=== PATIENT | male | born 1930 | race Caucasian/White ===

== ENCOUNTER 2017-11-20 08:45 | Emergency (ER) | payer MEDICARE, OTHER ==
[~2017-11-20] VITALS: Ht 172.7 cm; Wt 72.6 kg
[~2017-11-20 08:45] MED LIST: ASPIRIN324 MG PO; LISINOPRIL20 MG PO; LOPRESSOR25 MG PO; PLAVIX75 M1 PO; PRAVACHOL40 MG PO; PRILOSEC20 MG PO; PROSCAR5 MG PO; Synthroid,Levo25 MCG PO; TERAZOSIN HCL5 M1 PO
[2017-11-20 08:50] VITALS: BP 154/71
[2017-11-20] MEDS ORDERED: NORCO 5-325 TA1 EACH PO (09:10)
[2017-11-20] MEDS ORDERED: PREDNISONE10 MG PO (09:10)
== END 2017-11-20 09:54 | disposition home or self-care (01) ==
LOC: ED 08:45
DX: M10.071 Idiopathic gout, right ankle and foot (principal); R03.0 Elevated blood-pressure reading, without diagnosis of hypertension; Z88.6 Allergy status to analgesic agent; Z79.82 Long term (current) use of aspirin; Z79.899 Other long term (current) drug therapy

== ENCOUNTER → 2017-11-26 | Outpatient (CLI) | payer MEDICARE, OTHER ==
[~2017-11-26] MED LIST changes: +NORCO 5-325 TA1 EACH PO; +PREDNISONE10 MG PO
== END | disposition home or self-care (01) ==
LOC: LAB 09:59
DX: M10.9 Gout, unspecified (principal)